=== PATIENT | female | born 1940 | race Caucasian/White ===

== ENCOUNTER 2018-01-03 15:16 | Emergency (ER) | payer MEDICARE, OTHER ==
[~2018-01-03] VITALS: Ht 160 cm; Wt 72.6 kg
[~2018-01-03 15:16] MED LIST: IBUP-2213 PO; [UNRECOGNIZED DRUG - CODE] PO
[2018-01-03 15:42] VITALS: BP 132/75
--- NOTE | 2018-01-03 16:55 | NUR ---
pt w/c to bed 10.
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
--- NOTE | 2018-01-03 19:12 | NUR ---
Pt report given to [facility]. Transfer of care at this time.
--- NOTE | 2018-01-03 19:30 | NUR ---
RECEIVED REPORT FROM AM NURSE. PT RESTING IN BED, REPORTS 7/10 BACK PAIN. ALL NEEDS MET AT THIS TIME.
[2018-01-03] MEDS ORDERED: DIAZEPAM 2 MG TAB PO STA (19:42)
[2018-01-03] MEDS ORDERED: KETOROLAC 30 MG/ML VIAL IM ONE (19:45)
[2018-01-03] MEDS ORDERED: DIAZEPAM 5 MG TAB PO ONE (20:20)
[2018-01-03] MEDS ORDERED: DIAZEPAM 5 MG TAB ONE (20:44)
[2018-01-03 22:00] VITALS: BP 159/96
--- NOTE | 2018-01-03 22:00 | NUR ---
Patient discharged with v/s stable. Written and verbal after care instructions given and explained. Patient alert, oriented and verbalized understanding of instructions. Ambulatory with steady gait. All questions addressed prior to discharge. ID band removed. Patient advised to follow up with PMD. Rx of ACETAMINOPHEN, VALIUM given. Patient educated on indication of medication including possible reaction and side effects. Opportunity to ask questions provided and answered.
== END 2018-01-03 22:00 | disposition home or self-care (01) ==
LOC: MED 15:16
DX: M54.5 Low back pain (principal); Z79.899 Other long term (current) drug therapy; J45.909 Unspecified asthma, uncomplicated; I10 Essential (primary) hypertension
CPT/HCPCS: 74176; 81002; 81025; 96372; 99284; J1885

== ENCOUNTER 2018-08-28 23:07 | Emergency (ER) | payer MEDICARE, OTHER ==
[~2018-08-28] VITALS: Ht 157.5 cm; Wt 72.6 kg
[2018-08-28 23:15] VITALS: BP 168/86
--- NOTE | 2018-08-28 23:48 | NUR ---
PT AMBULATED TO ER BED 03
--- NOTE | 2018-08-29 00:10 | NUR ---
PT IS A 77 Y/O FEMALE WHO PRESENTS TO THE ED C/O FALL. PER PT, PT FELL AT HOME ONTO THE L WRIST, PT DENIES LOC. NOTED SWELLING, CMS INTACT, NO OBVIOUS TRAUMA/DEFORMITY. PT REPORTS 6/10 ACHING L WRIST PAIN THAT DOES NOT RADIATE, RR EVEN/UNLABORED. PT AWAKE AND ALERT, RR EVEN/UNLABORED. PT REPOSITIONED FOR COMFORT, BED IN LOWEST POSITION. ER MD DR. BRENNAN NOTIFIED. WILL CONTINUE TO MONITOR. PMH: HTN RX: LISINOPRILL NKA
--- NOTE | 2018-08-29 00:32 | NUR ---
Dr. Ramirez evaluating patient at bedside.
[2018-08-29] MEDS ORDERED: cefTRIAXone 1,000 MG in LIDOCAINE MPF 1% - 5 mL VIAL 2.1 ML IM ONE (00:45)
[2018-08-29] MEDS ORDERED: KETOROLAC 30 MG/ML VIAL IM ONE (00:45)
--- NOTE | 2018-08-29 01:13 | NUR ---
ORTHO GLASS WAS PLACED ON PTS LEFT WRIST AND FOREARM
--- NOTE | 2018-08-29 01:25 | NUR ---
PT WAS PLACED ON A LEFT SHOULDER IMOBLIZER SLING
[2018-08-29 01:47] VITALS: BP 180/93
--- NOTE | 2018-08-29 01:47 | NUR ---
Patient discharged with v/s stable. Written and verbal after care instructions given and explained. Patient alert, oriented and verbalized understanding of instructions. Ambulatory with steady gait. All questions addressed prior to discharge. Ortho glass applied to left wrist and forearm and immobilized with sling. Teaching and demonstration provided and reinforced by EMT, RN. ID band removed. Patient advised to follow up with PMD. Rx of Motrin given. Patient educated on indication of medication including possible reaction and side effects. Opportunity to ask questions provided and answered.
== END 2018-08-29 01:47 | disposition home or self-care (01) ==
LOC: MED 23:07
DX: S52.532A Colles' fracture of left radius, initial encounter for closed fracture (principal); J45.909 Unspecified asthma, uncomplicated; I10 Essential (primary) hypertension; Z79.1 Long term (current) use of non-steroidal anti-inflammatories (NSAID); Z79.899 Other long term (current) drug therapy; W19.XXXA Unspecified fall, initial encounter; Y93.89 Activity, other specified; Y92.89 Other specified places as the place of occurrence of the external cause; Y99.8 Other external cause status
CPT/HCPCS: 29125; 73110; 96372; 99283; J1885

== ENCOUNTER 2018-10-07 12:48 | Emergency (ER) | payer MEDICARE, OTHER ==
[~2018-10-07] VITALS: Ht 149.9 cm; Wt 72.7 kg
[2018-10-07 12:53] VITALS: BP 139/78
--- NOTE | 2018-10-07 13:38 | NUR ---
PT ambulated to bed 09.
[2018-10-07] MEDS ORDERED: NEOMYCIN/POLYMYXIN/BACITRACIN 0.9 GM/1 PKT TP ONE (14:05)
[2018-10-07] MEDS ORDERED: cefTRIAXone 1,000 MG in LIDOCAINE 1% ***ER ONLY *** 2.1 ML IM ONE (14:05)
--- NOTE | 2018-10-07 14:20 | NUR ---
PT TO CT VIA WC
[2018-10-07] MEDS ORDERED: cefTRIAXone 1,000 MG VIAL ONE (14:34)
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
[2018-10-07] MEDS ORDERED: LIDOCAINE MPF 1% - 5 mL VIAL 5 ML ONE (14:35)
--- NOTE | 2018-10-07 14:35 | NUR ---
RETURNED FROM CT VIA WC
--- NOTE | 2018-10-07 14:39 | NUR ---
PT RECEIVED TDAP THIS YEAR
--- NOTE | 2018-10-07 17:00 | NUR ---
REPORT GIVEN TO [facility] [phone]MICHAEL IQBAL
[2018-10-07 17:09] VITALS: BP 128/71
--- NOTE | 2018-10-07 17:10 | NUR ---
Patient to be transferred to [facility]. Is being transferred due to . Receiving facility has accepting physician and available space. ER physician has signed transfer form. Patient or responsible republican has agreed to transfer and signed form. Patient belongings inventoried and will be sent with patient. Copy of nursing notes, lab reports, EKG, Physicians Orders and X-rays to be sent with patient. Report called to at receiving facility. ambulance service has been called for transfer. ETA is .
== END 2018-10-07 17:10 | disposition short-term general hospital (02) ==
LOC: MED 12:48
DX: S06.6X0A Traumatic subarachnoid hemorrhage without loss of consciousness, initial encounter (principal); S00.12XA Contusion of left eyelid and periocular area, initial encounter; S00.531A Contusion of lip, initial encounter; S80.212A Abrasion, left knee, initial encounter; S00.31XA Abrasion of nose, initial encounter; J45.909 Unspecified asthma, uncomplicated; I10 Essential (primary) hypertension; Z79.1 Long term (current) use of non-steroidal anti-inflammatories (NSAID); Z79.899 Other long term (current) drug therapy; Z98.890 Other specified postprocedural states; W01.0XXA Fall on same level from slipping, tripping and stumbling without subsequent striking against object, initial encounter; Y93.01 Activity, walking, marching and hiking; Y92.89 Other specified places as the place of occurrence of the external cause; Y99.8 Other external cause status
CPT/HCPCS: 70450; 70486; 72125; 96372; 99285; J0696; J2001; 90715